=== PATIENT | female | born 1965 | race Caucasian/White ===

== ENCOUNTER 2024-01-29 10:53 | Inpatient (IN) | payer OTHER, SELFPAY ==
[2024-01-29] VITALS (7 sets, daily range): BP systolic 103–173; BP diastolic 58–92; BMI 23.6
[2024-01-29 06:07] LABS: % Basophils 0.3 % (0-2); % Eosinophils 0.5 % (0-6); % Immature Granulocytes 0.3 % (0-0.5); % Lymphocytes 20.3 % (20.5-51.1); % Monocytes 1.5 % (1.7-9.3); % Neutrophils 77.1 % (42.2-75.2); Absolute Eosinophils 0.1 10^3/uL (0-0.7); Absolute Lymphocytes 2.2 10^3/uL (1.2-3.4); Absolute Monocytes 0.2 10^3/uL (0.1-0.6); Absolute Neutrophils 8.3 10^3/uL (1.4-6.5); Hematocrit 43.2 % (37.0-47.0); Mean Corp Hgb Conc. 34.7 g/dL (33.0-37.0); Mean Corpuscular Volume 83.6 fL (81.0-99.0); Nucleated Red Blood Cells % 0 %; Platelet Count 379 10^3/uL (130-400); Red Blood Cell Count 5.17 10^6/uL (4.20-5.40); Red Cell Dist. Width 12.5 % (11.5-14.5); White Blood Cell Count 10.8 10^3/uL (4.8-10.8)
--- NOTE | 2024-01-29 06:07 | ED.GENMED ---
History of Present Illness
General
Chief Complaint: Abdominal Pain
Source: patient and family
Exam Limitations: none
Time Seen by Provider: 01/29/24 06:06
Nursing documentation reviewed up to this point in time: agreed with
Travel History
Have you had any contact with someone who has COVID-19?: No
Do you have any symptoms of coronavirus? Fever > 100 degrees, chills, cough, shortness of breath, sore throat, loss of taste or smell, muscle aches, or headache?: No
History of Present Illness
History of Present Illness:
The patient is a 58-year-old female with a past medical history of ulcerative colitis with a colectomy and J-pouch, who comes in with complaints of upper abdominal pain that developed while she was sleeping last night. Patient reports that she was
previously well yesterday. She reports the pain is occurring in waves and wrapping around her mid to upper abdomen, on both sides. Patient reports occasional nausea but no vomiting. Patient also reports 3 episodes of watery nonbloody diarrhea
since being here. Patient denies fever, chest pain or shortness of breath.
Past History
Past History
ED Past Medical History: Other (Ulcerative colitis)
ED Past Surgical History: Cholecystectomy and Other (Colectomy)
Social History
Tobacco: Non-smoker
Alcohol: Other
Drug: None
Personal: Other
Living: with family
Employment: Other
Family History
Family History: Other
Review of Systems
Review of Systems
Allergies reviewed?: Yes
All Other Systems: ROS reviewed and negative except as documented in HPI and ROS
Constitutional: Reports no symptoms
EENT: Reports no symptoms
Respiratory: Reports no symptoms
Cardiac: Reports no symptoms
ABD/GI: Reports abdominal pain, nausea and diarrhea
: Reports no symptoms
Musculoskeletal: Reports no symptoms
Skin: Reports no symptoms
Neurological: Reports no symptoms
Endocrine: Reports no symptoms
Hematologic/Lymphatic: Reports no symptoms
Psychiatric: Reports no symptoms
Phy Exam
Physical Exam
Physical Exam:
Physical Exam
General: Patient appears uncomfortable but is conversational
Neck: supple. no meningeal signs. normal psoterior pharynx
Heart: s1/s2 regular rate and rhythm, no murmur. equal radial pulses.
Lungs: no acute respiratory distress. clear bilaterally
Abdomen: Diminished bowel sounds. Soft. No rebound or guarding. No pulsatile mass. Mild bilateral upper and mid abdominal tenderness
Neuro: alert and oriented. no focal neurological deficits
Skin: no rash
Psychiatric: well kept. interactive and cooperative
Extremities: no edema. no calf tenderness. negative homans. good distal pulses
Course
Orders/Labs/Results
Orders:
Orders
01/29/24 05:34
IV Insert/Care/Rem.- Treatment PRN
01/29/24 05:50
Complete Blood Count/With Diff Urgent
Comprehensive Metabolic Panel Urgent
Lactic Acid Urgent
Lipase Urgent
01/29/24 05:59
Electrocardiogram (*1) Urgent
Reason for Study: Abdominal Pain
EKG- Treatment ONCE
01/29/24 06:06
0.9% Sodium Chloride 1000 ml [Nss] 1,000 ml IV BOLUS
HYDROmorphone [Dilaudid] 0.5 mg IV NOW STA
Ondansetron Injectable [Zofran] 4 mg IV NOW STA
01/29/24 06:08
CT Abd/pel W Iv And Oral Contr Urgent
Comment:
Reason For Exam: mid to upper bilateral upper abdominal pain
Iohexol [Omnipaque] See Protocol PO NOW STA
01/29/24 09:53
HYDROmorphone [Dilaudid] 0.5 mg IV NOW STA
01/29/24 10:01
GASTROINTESTINAL CONSULT Routine
Consulting Provider: Julianne Delaney
Was physician already notified: Yes
SURGICAL CONSULT Routine
Consulting Provider: Feliz Mendoza
Was physician already notified: Yes
Abnormal Lab Results
01/29/24
05:50
Absolute Neuts (auto) 8.3 H 10^3/uL
(1.4-6.5)
Neutrophils % 77.1 H %
(42.2-75.2)
Lymphocytes % 20.3 L %
(20.5-51.1)
Monocytes % 1.5 L %
(1.7-9.3)
BUN 18 H mg/dl
(7-17)
Glucose 190 H mg/dl
(70-99)
Total Protein 8.7 H g/dl
(6.3-8.2)
01/29/24 05:50
01/29/24 05:50
Vital Signs
Initial and Last Documented VS:
Initial Vital Signs
Temp Pulse Resp BP Pulse Ox
97.3 F 98 14 173/92 95
01/29/24 05:18 01/29/24 05:18 01/29/24 05:18 01/29/24 05:18 01/29/24 05:18
Last Documented Vital Signs
Temp Pulse Resp BP Pulse Ox
97.3 F 98 14 152/76 97
01/29/24 05:18 01/29/24 05:18 01/29/24 05:18 01/29/24 09:59 01/29/24 10:00
MDM/Problems Addressed
Differential Diagnosis Includes:
Small bowel obstruction, acute appendicitis, acute pancreatitis, renal colic
MDM/Problems Addressed:
Patient presents with acute upper abdominal pain
Chronic conditions affecting care:
Given patient's history of colectomy and J-pouch, she could be at increased risk of bowel obstruction
Chronic conditions affecting care: Previous abdomnial surgery
Acute Exacerbation and/or Progression of Chronic Illness:
Patient is acutely hypertensive, this is likely due to pain
Acute Exacerbation and/or Progression of Chronic Illness: HTN
*Radiology
Radiology exam reviewed: radiology read reviewed
*Pulse Oximetry
Patient hypoxic: no
*EKG
Interpreted by ED Provider?: Yes
Interpretation: abnormal
Comparison EKG: no comparison EKG present
Rate: normal
Rhythm: sinus
[place]: normal axis
Interval: normal interval
QRS Pattern: normal QRS
Ischemia: non-specific ST changes
*Biometrics Specialist Interpretation
Rate: normal
Interpretation: normal
Rhythm: sinus
*Critical Care Note
Total Time (30-74mins, 75-104mins- exclusive of procedures): Not Applicable
Data Reviewed
Review of Other/Old Records Reveals: Operative Reports (Colonoscopy reviewed from 09/21/[address] Yassine Shipley which showed patchy mild inflammation of colon)
Source: patient
Patient Management
Discussion with other providers: Hospitalist
Escalation/DeEscalation of care consider admission/obs:
Patient will be admitted for likely small bowel obstruction. When I reassessed patient at 10:15 AM, she was still having waves of severe abdominal pain.
ED Attending Note
-
Portions of this chart may have been created with voice recognition software.� Occasional wrong word or��sound alike� substitutions may have occurred due to the inherent limitations of voice recognition software.
Discharge Plan
Departure
Patient Disposition: Admit
Date of Disposition: 01/29/24
Time of Disposition: 09:53
Admit to: Med/Surg
Presentation/result/management discussed w/ accepting MD/DO: Hospitalist
Patient with high blood pressure during this ER visit?: Yes
Condition: Good
Covid-19: Not Applicable
Discharge Problem:
Small bowel obstruction
Referrals:
Ketan Marcelino DO [Family Provider] -
Interventions
Interventions:
*General Assessment Last Done: 01/29/24 05:18
*Neglect/Abuse Screening Last Done: 01/29/24 05:18
ED- Fall Risk Assessment Last Done: 01/29/24 05:18
*ED COVID-19 Vaccine History Last Done: 01/29/24 05:18
JY-Kvgvuj-Ldxghvumcb Assessment Last Done: 01/29/24 05:54
[2024-01-29] MEDS: NSS 1000 IV ×3 (06:17→21:25)
[2024-01-29] MEDS: DILAUDID 0.5 MG IV ×4 (06:17→20:34)
[2024-01-29] MEDS: ZOFRAN 4 MG IV (06:17)
[2024-01-29] MEDS: OMNIPAQUE 50 ML PO (06:18)
[2024-01-29 06:24] LABS: Lactic Acid 1.5 mmol/L (0.7-2.0)
[2024-01-29 06:25] LABS: ALT (SGPT) 20 U/L (0-35); AST (SGOT) 35 U/L (14-36); Alkaline Phosphatase 106 U/L (38-126); Blood Urea Nitrogen 18 mg/dl (7-17); Calcium 10.2 mg/dl (8.4-10.2); Carbon Dioxide 24 mmol/L (22-30); Chloride 106 mmol/L (98-107); Estimated Creatinine Clearance 79 ml/min; Glucose 190 mg/dl (70-99); Lipase 93 U/L (23-300); Potassium 4.3 mmol/L (3.5-5.1); Sodium 139 mmol/L (135-145); Total Bilirubin 0.6 mg/dl (0.2-1.3); Total Protein 8.7 g/dl (6.3-8.2); eGFR > 60.00
--- NOTE | 2024-01-29 09:58 | HPS.HSE ---
Family Physician
-
Family Physician: Ketan Marcelino
Chief Complaint
-
Abd pain
History of Present Illness
58-year-old female with a past medical history of ulcerative colitis s/p total colectomy follows at [facility]; p/w RLQ abdominal pain that woke her up from sleep. She was previously well the day prior.
She denies to N/V. Also no fever, CP, SOB etc. She reported 3 episodes of watery nonbloody diarrhea since being here.�
Medical History
Past Medical History
Past Medical History: Reports Other
Additional Past Medical History:
ulcerative colitis s/p total colectomy
Past Surgical History: Reports Cholecystectomy and Other
Additional Past Surgical History:
ulcerative colitis s/p total colectomy
In-vitro fertilization x3
Social History
Tobacco: Vaping
Alcohol: Occasional
Personal:
Living: With Family
Family History
Family History: Not pertinent
Allergies / Home Medications
Allergies reflects when Allergies were last updated in [facility].
Home Medications with original date entered in [facility]
Allergy/Medication List:
Allergies
Allergy/AdvReac Type Severity Reaction Status Date / Time
morphine Allergy Hives Verified 01/29/24 05:17
Home Medications
Lactobac no.2-Bifidobac no.1-S. thermo 112.5 billion cell capsule (Visbiome) 2 cap PO BIDPRN PRN pouchitis 01/29/24
clotrimazole-betamethasone 1 %-0.05 % topical cream 1 applic topical BID PRN apply to vaginal area 01/29/24
gabapentin 100 mg capsule 200 mg PO TID 01/29/24
ibuprofen 800 mg-famotidine 26.6 mg tablet 1 tab PO TID PRN pouch pain 01/29/24
loperamide 2 mg capsule 2 mg PO Q4H PRN diarrhea 01/29/24
lorazepam 0.5 mg tablet 0.5 mg PO DAILY@189901/29/24
sertraline 50 mg tablet 50 mg PO DAILY@189901/29/24
tramadol 50 mg tablet 100 mg PO TID 01/29/24
Review of Systems
-
Abdomen/GI: Reports See HPI and Abdominal Pain; Denies Nausea or Vomiting
Physical Exam
Vital Signs
Vital Signs
Temp Pulse Resp BP Pulse Ox
36.3 C 98 14 159/84 96
01/29/24 05:18 01/29/24 05:18 01/29/24 05:18 01/29/24 06:00 01/29/24 06:15
Physical Exam
General: Well Developed, Well Nourished, No Apparent Distress and Conversant
HEENT: NormoCephalic, Moist mucous membranes and Atraumatic
Respiratory: Clear and Non Labored Respirations; No Accessory Resp Muscle Use
Cardiac: S1/S2 and Regular Rhythm; No Murmur or Rub
GI: Soft, Non Distended, Tender (RLQ ) and Other (diminished bowel sound ); No Organomegaly
Rectal: Deferred by Provider
Musculoskeletal: No Clubbing, No Cyanosis and No Edema
Skin: No Rash
Neuro: Nonfocal/grossly intact
Psych: Calm and Intact Judgment/Insight
Laboratory Results
-
01/29/24 05:50
01/29/24 05:50
Laboratory Results
Lactic Acid 1.5 mmol/L (0.7-2.0) 01/29/24 05:50
Total Bilirubin 0.6 mg/dl (0.2-1.3) 01/29/24 05:50
AST 35 U/L (14-36) 01/29/24 05:50
ALT 20 U/L (0-35) 01/29/24 05:50
Alkaline Phosphatase 106 U/L (38-126) 01/29/24 05:50
Lipase 93 U/L (23-300) 01/29/24 05:50
Data Reviewed
-
CT Scan: Report Reviewed by me
Lab Data: Labs Reviewed by me
Impression/Plan
-
58-year-old female with a past medical history of ulcerative colitis s/p total colectomy follows at [facility]; p/w RLQ abdominal pain that woke her up from sleep. She was previously well the day prior.
She denies to N/V. Also no fever, CP, SOB etc. She reported 3 episodes of watery nonbloody diarrhea since being here.�
CT AP:
Prior total colectomy and J-pouch procedure.
Short segment of narrowing just proximal to the lower pelvic anastomosis. Cannot exclude mild stricture formation.
Slight distention without gross dilatation of small bowel, though with a few segments of relatively disproportionate collapsed small bowel in the pelvis, raising the possibility of low-grade or partial small bowel obstruction.
Slightly distended measuring up to 8 mm, likely reflecting changes from prior cholecystectomy.
Severe diffuse pancreatic parenchymal atrophy.
A/P:
# Severe abd pain, likely due to SBO
less likely UC flare with h/o total colectomy
NPO for now, start IVF
Pain control with IV dilaudid
GI CS
GS CS
# h/o ulcerative colitis s/p total colectomy with colostomy reversal
# h/o Pouchitis�
DVT ppx: lovenox SQ
FC
--- NOTE | 2024-01-29 10:15 | CON.GI ---
Addendum entered and electronically signed by Julianne Delaney MD 01/29/24 13:06:
I saw and examined the patient.
The CARGO CHECKER's note was reviewed and I agree with the note.
Comment: This is a 58-year-old female who history of moderate to severe UC had been tried on medical management and had failed and subsequently had total colectomy with J-pouch about [address] Robertson at [facility] and currently sees
Cherelle at [facility] and Dr. Brasher at [place] for GI. She is up-to-date with her surveillance colonoscopy she had it in April 2023. She does have intermittent episodes of pouchitis and usually uses antibiotics(Cipro) for it and resolves. She denies
any rectal bleeding or recent flare. She presented today with symptoms severe abdominal pain bandlike fashion in her mid abdomen with nausea but no vomiting and imaging shows probable partial small bowel obstruction. She is passing flatus and she
did have normal stools yesterday she usually has about 3-4 bowel movements a day sometimes more depending on what she eats. No fevers or chills. Her symptoms have been improving.
Assessment and plan acute onset of abdominal pain with nausea with findings consistent with partial small bowel obstruction most likely related to adhesions there was questionable possible stricture at the anastomosis noted but she has had annual
colonoscopies with Dr. Villarreal and no prior stricture was noted. I told her to follow-up with Dr. Brasher and Dr. Villarreal after DC and she may need a small bowel follow-through versus CTE or MRE as OP. Continue supportive care with IV hydration,
n.p.o. surgery has been consulted if she does have vomiting will need NG tube for decompression hold off for now since her symptoms are actually improving. currently has no symptoms of flare or pouchitis so no indication for steroids
Original Note:
Consultation
-
Date/Time Consultation Requested: 01/29/24 1000
Date/Time Consultation Performed: 01/29/24 1015
Requesting Provider: Rebekah Rea MD
Performing Provider: KHADIJAH Pendleton, Julianne Delaney MD
Reason for Consultation: Small bowel obstruction hx UC
Medical History
Chief Complaint / HPI
Chief Complaint: abdominal pain with nausea
History of Present Illness:
Pt is a 58yo with hx ulcerative colitis for many years. She recall taking Asacol, 6MP and other oral regiment. She was followed by [facility] then Dr. Shipley with eventual evaluation at [facility] with total colectomy wt J pouch with Dr. Robertson 15 years ago
after noting precancerous polyps. She had been followed by Dr. Brasher and yearly colonoscopy with Dr. Villarreal at [facility] and has been off medication for years. She has continued chronic rectal pain and use of Motrin several times per day, tramadol,
and Gabapentin with PCP management. She has also had issues with pouchitis with occasional cipro course and chronic probiotic management but no hx obstructive issues in past. She now presents with sudden onset of severe abdominal pain with
nausea. On admission ct with findings of prior colectomy with J pouch and short segment of narrowing proximal to anastomosis cannot exclude stricture with few segments of relatively disproportionate collapsed small bowel in the pelvis, raising the
possibility of low-grade or partial small bowel obstruction. slight CBD dilation 8 mm with prior ahsan and panc atrophy.
Pt current admits to 10/10 pain prior to admission with some improvement after pain meds in ER but some persistent right sided pain. She denies dysphagia, GERD, vomiting, hematemesis, blood or black in stools. Normal bowel function variable
with diet diarrhea to formed stools. Last colonoscopy April 2023 stable.
Past Medical History
Past Medical History: Other (ulcerative colitis, osteopenia, thyroid nodule )
Past Surgical History: Cholecystectomy
Social History
Tobacco: Vaping
Alcohol: None
Drug: Marijuana (in past)
Personal:
Living: With Family
Employment: Employed
Family History
Family History: Other ([facility] IBD no familyhx colon CA or polyps)
Allergies / Home Medications
Allergy/AdvReac Type Severity Reaction Status Date / Time
morphine Allergy Hives Verified 01/29/24 05:17
Review of Systems
-
History Source: Patient
Constitutional: Reports Chills (on admission)
EENT: Reports No Symptoms
Respiratory: Reports No Symptoms
Cardiac: Reports No Symptoms
Abdomen/GI: Reports Abdominal Pain, Nausea and Other (chronic rectal pain )
: Reports No Symptoms
Musculoskeletal: Reports No Symptoms
Skin: Reports No Symptoms
Neurological: Reports Weakness
Endocrine: Reports No Symptoms
Hematologic/Lymphatic: Reports No Symptoms
Vital Signs
Temp Pulse Resp BP Pulse Ox
97.3 F 98 14 152/76 97
01/29/24 05:18 01/29/24 05:18 01/29/24 05:18 01/29/24 09:59 01/29/24 10:00
Physical Exam
Exam
General: Well Developed, Well Nourished and No Apparent Distress
HEENT: Normocephalic and Anicteric
Respiratory: Clear
Cardiac: Regular Rhythm
GI: Soft, Non Distended and Tender (right side mild tenderness )
Musculoskeletal: No Clubbing and No Cyanosis
Skin: Warm and Dry
Neuro: Awake, Alert and AO x 3
Psych: Calm
Results
WBC 10.8 10^3/uL (4.8-10.8) 01/29/24 05:50
Hgb 15.0 g/dL (12.0-16.0) 01/29/24 05:50
Hct 43.2 % (37.0-47.0) 01/29/24 05:50
MCV 83.6 fL (81.0-99.0) 01/29/24 05:50
Plt Count 379 10^3/uL (130-400) 01/29/24 05:50
Absolute Neuts (auto) 8.3 10^3/uL (1.4-6.5) H 01/29/24 05:50
Sodium 139 mmol/L (135-145) 01/29/24 05:50
Potassium 4.3 mmol/L (3.5-5.1) 01/29/24 05:50
Chloride 106 mmol/L (98-107) 01/29/24 05:50
Carbon Dioxide 24 mmol/L (22-30) 01/29/24 05:50
BUN 18 mg/dl (7-17) H 01/29/24 05:50
Creatinine 0.7 mg/dL (0.6-1.0) 01/29/24 05:50
Calcium 10.2 mg/dl (8.4-10.2) 01/29/24 05:50
Total Bilirubin 0.6 mg/dl (0.2-1.3) 01/29/24 05:50
AST 35 U/L (14-36) 01/29/24 05:50
ALT 20 U/L (0-35) 01/29/24 05:50
Alkaline Phosphatase 106 U/L (38-126) 01/29/24 05:50
Lipase 93 U/L (23-300) 01/29/24 05:50
Diagnostic Image Results:
Prior total colectomy and J-pouch procedure.
Short segment of narrowing just proximal to the lower pelvic anastomosis. Cannot exclude mild stricture formation.
Slight distention without gross dilatation of small bowel, though with a few segments of relatively disproportionate collapsed small bowel in the pelvis, raising the possibility of low-grade or partial small bowel obstruction.
Slightly distended measuring up to 8 mm, likely reflecting changes from prior cholecystectomy.
Severe diffuse pancreatic parenchymal atrophy.
Prior GI Procedures:
EGD: none
Colonoscopy: last [address] Dr. Villarreal at [facility] recalls as normal
Assessment / Plan
-
Pt is a 58yo with hx ulcerative colitis for many years. She recall taking Asacol, 6MP and other oral regiment. She was followed by [facility] then Dr. Shipley with eventual evaluation at [facility] with total colectomy wtih J pouch with Dr. Robertson 15 years ago
after noting precancerous polyps. She had been followed by Dr. Brasher and yearly colonoscopy with Dr. Villarreal at [facility] and has been off medication for years. She has continued chronic rectal pain and use of Motrin several times per day, tramadol,
and Gabapentin with PCP management. She has also had issues with pouchitis with occasional cipro course and chronic probiotic management but no hx obstructive issues in past. She now presents with sudden onset of severe abdominal pain with
nausea. On admission ct with findings of prior colectomy with J pouch and short segment of narrowing proximal to anastomosis cannot exclude stricture with few segments of relatively disproportionate collapsed small bowel in the pelvis, raising the
possibility of low-grade or partial small bowel obstruction. slight CBD dilation 8 mm with prior ahsan and panc atrophy.
-abdominal pain with concern for narrowing proximal to anastomosis with concern for SBO
-hx Ulcerative with prior total colectomy and J pouch
-occasional pouchitis with chronic probiotics and cipro use as needed
-chronic rectal pain on daily Motrin/famotidine, gabapentin, and tramadol
-hx ahsan
PLAN:
concern for obstructive process on admission -- adhesive disease, inflammatory vs other
pt with some improvement and no vomiting since admission may be resolving
await surgical eval
NPO
pain management
consider eventual MRE vs SBFT
resume probiotics when able to take PO diet
pt follows with Dr. Brasher and Dr. Villarreal after discharge
discussed chronic NSAID use and risk of PUD but has famotidine with medication, renal issue etc to further review with PCP
-
-
Thank you for consultation and allowing me to participate in the patient's care. Please call the patient registration representative GI physician during the after hours with any questions or concerns.
[2024-01-29] MEDS: TYLENOL 650 MG PO ×2 (13:03→20:33)
--- NOTE | 2024-01-29 13:31 | CON.GS ---
Consultation
-
Date/Time Consultation Requested: 01/29/2024
Date/Time Consultation Performed: 01/29/2024
Requesting Provider: ER
Performing Provider: Reji
Reason for Consultation: SBO
Medical History
-
Chief Complaint: Abdominal pain
History of Present Illness:
Patient is a pleasant 58-year-old female who presented to the emergency department for evaluation early this a.m. secondary to the acute onset of abdominal pain.
Patient with a past surgical history notable for ulcerative colitis treated with total abdominal colectomy, ileal J-pouch reconstruction with diverting ileostomy about 15 years ago at [facility]. She subsequently had her diverting loop ileostomy
reversed about 6 months postop. She had a cholecystectomy a few years later laparoscopically.
She reports no similar episodes like this in the past. Bowels are typically loose and fluctuate between 4-10 times a day depending on dietary intake.
She awoke from sleep with the acute onset of abdominal pain which was severe prompting her to call her daughter who brought her into the emergency department for evaluation. She had nausea but no vomiting. She is continued with a few episodes of
loose stools upon evaluation in the emergency department and even afterwards following her CT imaging study. She has gotten significant relief now after having 2 doses of Dilaudid, the most recent being a few hours ago. She still feels some
discomfort and tenderness in the abdomen mainly around the right lower quadrant in the region of her previous loop ileostomy scar. She does not recall any significant dietary indiscretions and in reviewing her meals yesterday they generally were
soft easy to digest foods other than having a small orange.
She has had a previous history of pouchitis but never symptoms like just. No previous history of diagnosis of small bowel obstructions.
Past Medical History
Past Medical History: Other (History of ulcerative colitis, osteopenia, thyroid nodule)
Past Surgical History: Bowel Resection, Cholecystectomy and Other (See HPI for details)
Social History
Tobacco: Non-Smoker
Alcohol: None
Living: With Family
Family History
Family History: Reviewed & Noncontributory
Allergies / Home Medications
Allergy/AdvReac Type Severity Reaction Status Date / Time
morphine Allergy Hives Verified 01/29/24 05:17
Medication Instructions Recorded Confirmed Type
Lactobac no.2-Bifidobac no.1-S. 2 cap PO BIDPRN PRN pouchitis 01/29/24 01/29/24 History
thermo 112.5 billion cell capsule
(Visbiome)
clotrimazole-betamethasone 1 1 applic topical BID PRN apply to 01/29/24 01/29/24 History
%-0.05 % topical cream vaginal area
gabapentin 100 mg capsule 200 mg PO TID 01/29/24 01/29/24 History
ibuprofen 800 mg-famotidine 26.6 1 tab PO TID PRN pouch pain 01/29/24 01/29/24 History
mg tablet
loperamide 2 mg capsule 2 mg PO Q4H PRN diarrhea 01/29/24 01/29/24 History
lorazepam 0.5 mg tablet 0.5 mg PO DAILY@1900 01/29/24 01/29/24 History
sertraline 50 mg tablet 50 mg PO DAILY@1900 01/29/24 01/29/24 History
tramadol 50 mg tablet 100 mg PO TID 01/29/24 01/29/24 History
Review of Systems
-
History Source: Patient
All other systems: Negative unless noted
A 10 point review of systems was completed, and was negative except as per HPI.
Physical Exam
Vital Signs
Temp Pulse Resp BP Pulse Ox
97.3 F 90 16 164/77 99
01/29/24 05:18 01/29/24 13:24 01/29/24 13:24 01/29/24 13:24 01/29/24 13:24
01/28/24 01/29/24 01/30/24
06:59 06:59 06:59
Actual Weight 64.4 kg
Body Mass Index (BMI) 23.6
Lab Results
01/29/24 05:50
01/29/24 05:50
WBC 10.8 10^3/uL (4.8-10.8) 01/29/24 05:50
Hgb 15.0 g/dL (12.0-16.0) 01/29/24 05:50
Hct 43.2 % (37.0-47.0) 01/29/24 05:50
Plt Count 379 10^3/uL (130-400) 01/29/24 05:50
Abs Immat Gran (auto) 0.0 10^3/uL (0-0.05) 01/29/24 05:50
Neutrophils % 77.1 % (42.2-75.2) H 01/29/24 05:50
Physical Exam
General: Well Developed, Well Nourished, No Apparent Distress and Comfortable
HEENT: Normocephalic, Anicteric and Moist Mucous Membranes
Respiratory: Non Labored Respirations
Cardiac: Regular Rhythm
GI: Soft, Non Distended and Tender (Mild tenderness palpation localizing to the right lower quadrant. No rebound rigidity or guarding. Multiple surgical scars well-healed. No hernias noted.)
Skin: Warm
Neuro: AO x 3
Psych: Calm
Data Reviewed
-
CT Scan: Image Personally Visualized and interpreted, Report Reviewed by me and Discussed with Patient
Assessment / Plan
-
Assessment: 58-year-old female presenting with probable early partial small bowel obstruction; likely secondary to adhesions given past surgical history..
Clinically improving after 2 doses of pain medication, last dose just before 10 AM. On examination abdomen is soft, not distended, there is mild tenderness localized in the right lower quadrant but no rebound rigidity or guarding and no hernias are
detected.
Vital signs are stable without tachycardia and normotensive.
CT imaging personally reviewed as well as radiologist report. Moderate gastric distention and somewhat prominent small bowel loops particularly up to level of small bowel anastomosis and just distally to it. There is subsequent smooth slow
tapering to relatively decompressed small bowel loops but additional loops of small bowel are fluid-filled and distal to SB anastomosis as well. Radiologist points out numerous spots of collapse small bowel but these do not appear to be abrupt
transition points, may even reflect peristalsis.
There does not appear to be radiographic signs suggestive of internal hernia, closed-loop obstruction or bowel compromise/threat.
Plan: Given initial clinical improvement since presenting to emergency department with supportive care and CT imaging without signs of immediate bowel threat or compromise recommend continued supportive care with bowel rest, IV fluid hydration, as
needed analgesics and antiemetics.
As long as no vomiting nor worsening pain can omit NG tube as patient has already had multiple liquid bowel movements.
We will obtain a follow-up abdominal x-ray tomorrow a.m. to monitor for progression/elimination of today's ingested oral contrast.
[2024-01-29] MEDS: PROTONIX IV 40 MG IV (16:43)
[2024-01-29] MEDS: NSS (PRESERVATIVE FREE) 10 ML IV (16:43)
[2024-01-29] MEDS: LOVENOX 40 MG SC (18:11)
[2024-01-29] MEDS: ZOLOFT 50 MG PO (21:26)
[2024-01-29] MEDS: ATIVAN 0.5 MG PO (21:26)
[2024-01-30] MEDS: NSS 1000 IV (05:31)
[2024-01-30] MEDS: TYLENOL 650 MG PO ×2 (05:34→11:59)
[2024-01-30 07:51] LABS: Hematocrit 35.5 % (37.0-47.0); Mean Corp Hgb Conc. 33.8 g/dL (33.0-37.0); Mean Corpuscular Hgb 28.6 pg (27.0-31.0); Mean Corpuscular Volume 84.7 fL (81.0-99.0); Mean Platelet Volume 9.2 fL (7.4-10.4); Platelet Count 310 10^3/uL (130-400); Red Blood Cell Count 4.19 10^6/uL (4.20-5.40); Red Cell Dist. Width 12.2 % (11.5-14.5); White Blood Cell Count 6.7 10^3/uL (4.8-10.8)
[2024-01-30 08:00] VITALS: BP 143/75
[2024-01-30 08:20] LABS: Blood Urea Nitrogen 11 mg/dl (7-17); Calcium 8.4 mg/dl (8.4-10.2); Carbon Dioxide 21 mmol/L (22-30); Chloride 108 mmol/L (98-107); Estimated Creatinine Clearance 92 ml/min; Glucose 108 mg/dl (70-99); Magnesium 2.1 mg/dl (1.6-2.3); Potassium 3.6 mmol/L (3.5-5.1); Sodium 140 mmol/L (135-145); eGFR > 60.00
[2024-01-30] MEDS: NSS (PRESERVATIVE FREE) 10 ML IV (09:11)
[2024-01-30] MEDS: PROTONIX IV 40 MG IV (09:13)
--- NOTE | 2024-01-30 09:33 | W.PN.GS2 ---
Today's Communication / Plan
-
Dispo planning
Assessment / Plan
-
This is a 58-year-old female status post , total abdominal colectomy/DLI/J-pouch who presented 01/29/2024 with her first small bowel obstruction that resolved without any operative intervention. X-ray today demonstrated resolution of her
obstruction.
Okay for low residue diet.
Patient can follow-up with general surgery or her surgeon downtown.
Dispo per primary, but cleared from a general surgery's perspective if able to tolerate breakfast and lunch.
Time Spent
Total Time Spent with Patient (in minutes): 20
Subjective Data
-
Date of Service: January 30, 2024
Interval Events:
No acute events overnight. Slept well. Pain Controlled. Denies Nausea/Vomiting, +bowel function.
Objective Data
-
Intake and Output
01/29/24 01/30/24 01/31/24
06:59 06:59 06:59
Other:
Number of approximated MODERATE 4
amounts of urine
Vital Signs
Temp Pulse Resp BP Pulse Ox
97.8 F 88 18 143/75 98
01/30/24 08:00 01/30/24 08:00 01/30/24 08:00 01/30/24 08:00 01/30/24 08:00
Lab Results
01/30/24 07:18
01/30/24 07:18
Calcium 8.4 mg/dl (8.4-10.2) D 01/30/24 07:18
Magnesium 2.1 mg/dl (1.6-2.3) 01/30/24 07:18
Total Bilirubin 0.6 mg/dl (0.2-1.3) 01/29/24 05:50
AST 35 U/L (14-36) 01/29/24 05:50
ALT 20 U/L (0-35) 01/29/24 05:50
Alkaline Phosphatase 106 U/L (38-126) 01/29/24 05:50
Total Protein 8.7 g/dl (6.3-8.2) H 01/29/24 05:50
Albumin 5.0 g/dl (3.5-5.0) 01/29/24 05:50
Physical Exam
-
GENERAL/NEURO: Awake, Alert, no distress
CHEST: Unlabored breathing on RA
ABDOMEN: Soft, Non-Tender, Non-Distended
--- NOTE | 2024-01-30 10:42 | W.PN.GI.CBS2 ---
Addendum entered and electronically signed by Chris Childers MD 01/30/24 15:40:
I saw and examined the patient.
The PA's note was reviewed and I agree with the note.
Comment:
Pt feeling better, ok from GI standpoint for d/c. F/u with Dr. Brasher.
Original Note:
Today's Communication / Plan
-
concern for obstructive process on admission -- adhesive disease, inflammatory anatomic ulcer with NSAID use vs other
continued improvement advancing to low residue diet
follow up with dr. Brasher for consider MRE, CTE, SBFT
resume probiotics when tolerating PO diet
Dr. Villarreal follow up for yearly colonoscopy
again discussed chronic NSAID use and risk of PUD but has famotidine with medication, renal issue etc to further review with PCP
if tolerating diet and pain controlled stable from GI for discharge
Assessment / Plan
-
Pt is a 58yo with hx ulcerative colitis for many years. She recall taking Asacol, 6MP and other oral regiment. She was followed by [facility] then Dr. Shipley with eventual evaluation at [place] with total colectomy wtih J pouch with Dr. Robertson 15 years ago
after noting precancerous polyps. She had been followed by Dr. Brasher and yearly colonoscopy with Dr. Villarreal at [place] and has been off medication for years. She has continued chronic rectal pain and use of Motrin several times per day, tramadol,
and Gabapentin with PCP management. She has also had issues with pouchitis with occasional cipro course and chronic probiotic management but no hx obstructive issues in past. She now presents with sudden onset of severe abdominal pain with
nausea. On admission ct with findings of prior colectomy with J pouch and short segment of narrowing proximal to anastomosis cannot exclude stricture with few segments of relatively disproportionate collapsed small bowel in the pelvis, raising the
possibility of low-grade or partial small bowel obstruction. slight CBD dilation 8 mm with prior ahsan and panc atrophy.
-abdominal pain with concern for narrowing proximal to anastomosis with concern for SBO
-hx Ulcerative with prior total colectomy and J pouch
-occasional pouchitis with chronic probiotics and cipro use as needed
-chronic rectal pain on daily Motrin/famotidine, gabapentin, and tramadol
-hx ahsan
PLAN:
concern for obstructive process on admission -- adhesive disease, inflammatory anatomic ulcer with NSAID use vs other
continued improvement advancing to low residue diet
follow up with dr. Brasher for consider MRE, CTE, SBFT
resume probiotics when tolerating PO diet
Dr. Villarreal follow up for yearly colonoscopy
again discussed chronic NSAID use and risk of PUD but has famotidine with medication, renal issue etc to further review with PCP
if tolerating diet and pain controlled stable from GI for discharge
Subjective
Subjective
Date of Service: January 30, 2024
feeling much better advancing to low residue diet no vomiting + stools
Objective
Data Reviewed
Laboratory Data:
Laboratory Results
01/30/24 07:18
01/30/24 07:18
Laboratory Results
Magnesium 2.1 mg/dl (1.6-2.3) 01/30/24 07:18
Total Bilirubin 0.6 mg/dl (0.2-1.3) 01/29/24 05:50
AST 35 U/L (14-36) 01/29/24 05:50
ALT 20 U/L (0-35) 01/29/24 05:50
Alkaline Phosphatase 106 U/L (38-126) 01/29/24 05:50
Lipase 93 U/L (23-300) 01/29/24 05:50
Vital Signs and I&O:
Vital Signs
Temp Pulse Resp BP Pulse Ox
97.8 F 88 18 143/75 98
01/30/24 08:00 01/30/24 08:00 01/30/24 08:00 01/30/24 08:00 01/30/24 08:00
Physical Exam
Physical Exam
HEENT: Anicteric and Moist mucous membranes
Cardiology: Normal Sinus Rhythm
Pulmonary: Clear
GI: Soft, Non Distended and Tender (minimal diffuse )
Extremities: No Edema
Neuro: Non Focal
--- NOTE | 2024-01-30 10:59 | W.PN.HOSP.TC ---
Addendum entered and electronically signed by Rebekah Rea MD 01/30/24 13:54:
total DC time 35 min
Original Note:
Today's Communication/Plan
-
DC home
Assessment / Plan
Assessment / Plan
58-year-old female with a past medical history of ulcerative colitis s/p total colectomy follows at [place]; p/w RLQ abdominal pain that woke her up from sleep. She was previously well the day prior.
She denies to N/V. Also no fever, CP, SOB etc. She reported 3 episodes of watery nonbloody diarrhea since being here.�
CT AP:
Prior total colectomy and J-pouch procedure.
Short segment of narrowing just proximal to the lower pelvic anastomosis. Cannot exclude mild stricture formation.
Slight distention without gross dilatation of small bowel, though with a few segments of relatively disproportionate collapsed small bowel in the pelvis, raising the possibility of low-grade or partial small bowel obstruction.
Slightly distended measuring up to 8 mm, likely reflecting changes from prior cholecystectomy.
Severe diffuse pancreatic parenchymal atrophy.
A/P:
# Severe abd pain due to SBO, possible due to adhesive disease, inflammatory anatomic ulcer with NSAID use vs other
less likely UC flare with h/o total colectomy�
Follow up AXR: mild small bowel dilatation. Stable. Related to surgical site. This may be due to developing small bowel obstruction or ileus. Postsurgical changes not excluded. No additional findings to suggest obstruction.
GI and GS on board
Restarted low residue diet per GS and pt tolerating well.
follow up with dr. Brasher for consider MRE, CTE, SBFT. �Dr. Villarreal follow up for yearly colonoscopy
resume probiotic
# h/o ulcerative colitis s/p total colectomy with colostomy reversal
# h/o Pouchitis�
DVT ppx: lovenox SQ
FC
DW RN
Anticipated Discharge: Today
Subjective/Interval History
-
Date of Service: January 30, 2024
Objective Data
-
Labs:
Laboratory Results
01/30/24
07:18
WBC 6.7
Hgb 12.0
Hct 35.5 L
Plt Count 310
Sodium 140
Potassium 3.6
Chloride 108 H
Carbon Dioxide 21 L
BUN 11
Creatinine 0.4 L
Glucose 108 H
Calcium 8.4 D
Vital Signs:
Vital Signs
Temp Pulse Resp BP Pulse Ox
36.6 C 88 18 143/75 98
01/30/24 08:00 01/30/24 08:00 01/30/24 08:00 01/30/24 08:00 01/30/24 08:00
Review of Systems
-
Abdomen/GI: Denies Abdominal Pain (mild ache)
Physical Exam
-
General: Well Developed, Well Nourished, No Apparent Distress, Comfortable and Conversant; Negative Respiratory Distress
HEENT: Normocephalic, Atraumatic, Nose Appears Normal and Ears Appear Normal; Negative Oxygen
Respiratory: Clear to Auscultation and Non Labored Respirations; Negative Accessory Resp Muscle Use
Cardiac: Regular Rhythm and S1/S2
GI: Soft, Nontender, Nondistended and Normal Bowel Sounds
Skin: Warm and Dry
Neuro: Awake, Alert, Oriented, AO x 3 and Nonfocal/Grossly Intact
Psych: Calm and Intact Judgement/Insight
Data Reviewed
-
Diagnostic Radiology: Report Reviewed by me
CT Scan: Report Reviewed by me
Labs: Labs Reviewed by me
--- NOTE | 2024-01-30 11:04 | CM ---
Patient seen bedside, initial assessment completed. Patient reports she lives with her spouse and children in a two story home, denies DME, VN, or SNF history. Patient confirms PCP Ketan Marcelino, pharmacy [facility]. CM will continue to follow
for discharge planning needs.
Plan; home no needs anticipated.
--- NOTE | 2024-01-30 13:46 | W.DCSUMMARY ---
Discharge Summary
Discharge Data
Date of Admission: 01/29/24
Date of Discharge: 01/30/24
-
Pending Results: No
Hospital Course
Principal Diagnosis:
Severe abdominal pain due to small bowel obstruction, possibly related to adhesive disease, inflammatory anatomic ulcer with NSAID use vs other
Chronic Diagnoses:�
History of ulcerative colitis status post total colectomy with colostomy reversal
History of Pouchitis�
Consultations:�
Gastroenterology
General surgery
Procedures:�
None
Clinical course:�
This is a 58-year-old female with past medical history as stated above, who presented with right lower quadrant abdominal pain.
Problem 1:
Severe abdominal pain due to small bowel obstruction, possibly related to adhesive disease, inflammatory anatomic ulcer with NSAID use vs other.
Her CT AP noted prior total colectomy and J-pouch procedure, short segment of narrowing just proximal to the lower pelvic anastomosis, slight distention without gross dilatation of small bowel, though with a few segments of relatively
disproportionate collapsed small bowel in the pelvis, raising the possibility of low-grade or partial small bowel obstruction.
Her follow up AXR showed mild small bowel dilatation which is stable, this may be due to developing small bowel obstruction or ileus, and no additional findings to suggest obstruction.
The patient was seen by GI and general surgery, and was restarted with low residue diet (following bowel rest) which she tolerated well.
She was discharged home and recommended to continue follow-up with dr. Brasher for consider MRE, CTE, SBFT.��Dr. Villarreal follow up for yearly colonoscopy
As for the rest of her medical problems, they were stable during her hospital stay.
Discharge Plan
-
Patient Disposition: Home (Routine Discharge)
Discharge Diagnosis/Procedures: Abdominal pain due to small bowel obstruction (possibly due to adhesive disease vs inflammatory anatomic ulcer with NSAID use)
Condition: Good
Diet: As tolerated and Low Residue
Activity: As tolerated
Driving Restrictions: As prior to admission
Others Tests: discuss with PCP for change of medication (off chronic Motrin use)
Referrals:
Tim Brasher MD [Non-Admitting Privileges] - (follow up with OP GI MD for review for MRE, CTE vs SBFT )
Roseline Villarreal MD [Non-Admitting Privileges] -
Ketan Marcelino DO [Family Provider] - in less than 1 week
Prescriptions:
Continued
loperamide 2 mg Capsule
2 mg PO Q4H PRN (Reason: diarrhea)
tramadol 50 mg Tablet
100 mg PO TID
Patient Comments:
01/29/2024, pt. filled this med. on 01/02/2024 for 180 tablets per PDMP.
lorazepam 0.5 mg Tablet
0.5 mg PO DAILY@1900
Patient Comments:
01/29/2024, pt. filled this med. on 01/22/2024 for 90 tablets per PDMP.
clotrimazole-betamethasone 1-0.05 % Cream
1 applic TOPICAL BID PRN (Reason: apply to vaginal area)
gabapentin 100 mg Capsule
200 mg PO TID
sertraline 50 mg Tablet
50 mg PO DAILY@1900
Visbiome 112.5 billion cell Capsule
2 cap PO BIDPRN PRN (Reason: pouchitis)
ibuprofen-famotidine 800-26.6 mg Tablet
1 tab PO TID PRN (Reason: pouch pain)
Discharge Orders:
Discharge Patient (As Directed); Ordered 01/30/24
Ordered By: Rebekah Rea
Discharge Date and Time
Discharge Date/Time: 01/30/24 13:02
== END 2024-01-30 13:02 | disposition home or self-care (01) | DRG 390 ==
LOC: 4 EAST ACU 10:53
PROVIDERS: Emergency Medicine; ADMITTING PHYSICIAN Internal Medicine; CONSULT PHYSICIAN Internal Medicine Gastroenterology; CONSULT PHYSICIAN Surgery; EMERGENCY PHYSICIAN Emergency Medicine; FAMILY PHYSICIAN Family Medicine
DX: K56.51 Intestinal adhesions [bands], with partial obstruction (principal)
CPT/HCPCS: 74018; 74177; 80048; 80053; 83605; 83690; 83735; 85025; 85027; 93005; 96374; 96375; 96376; 99285; Q9967